=== PATIENT | male | born 1990 | race Asian ===

== ENCOUNTER 2023-04-28 12:49 | Emergency (ER) | payer MEDICAID ==
[~2023-04-28] VITALS: Ht 167.6 cm; Wt 104.5 kg
[2023-04-28 12:55] VITALS: TEMP 98.3
[2023-04-28] MEDS ORDERED: KETOROLAC TROMETHAMINE 60 MG/2 ML VIAL IM ONE (14:15)
[2023-04-28] MEDS ORDERED: METHOCARBAMOL 500 MG TABLET PO ONE (14:15)
[2023-04-28] MEDS ORDERED: ACETAMINOPHEN/CODEINE 300-30 MG TABLET PO ONE (14:15)
[2023-04-28 15:08] LABS: BASOPHILS % (AUTO) 0.9 % (0.0-2.0); EOSINOPHILS % (AUTO) 2.8 % (1.0-6.0); HEMATOCRIT 45.1 % (41-53); HEMOGLOBIN 15.3 g/dL (13.5-17.5); LYMPHOCYTES # (AUTO) 2.6 K/uL (1.0-4.8); LYMPHOCYTES % (AUTO) 31.8 % (22.0-44.0); MEAN CORPUSCULAR HEMOGLOBIN 29.4 pg (26.0-34.0); MEAN CORPUSCULAR HGB CONC 33.9 G/dL (31.0-37.0); MEAN CORPUSCULAR VOLUME 87 fL (80-100); MONOCYTES # (AUTO) 0.6 K/uL (0.1-1.0); NEUTROPHILS # (AUTO) 4.7 K/uL (1.8-7.7); NEUTROPHILS % (AUTO) 57.5 % (40.0-70.0); PLATELET COUNT (AUTO) 380 K/uL (150-450); RED CELL DISTRIBUTION WIDTH 13.6 % (11.5-14.5); WHITE BLOOD COUNT (AUTO) 8.1 K/uL (4.5-11.0)
[2023-04-28] MEDS ORDERED: IBUP-1554 PO (15:08)
[2023-04-28] MEDS ORDERED: ACET-2080 PO (15:08)
[2023-04-28] MEDS ORDERED: METH-812 PO (15:08)
[2023-04-28 15:17] LABS: ANION GAP 9 mmol/L (8-16); CALCIUM, TOTAL 8.9 mg/dL (8.8-10.5); CARBON DIOXIDE 27 mmol/L (22-29); CHLORIDE 104 mmol/L (98-107); CREATININE 1.08 mg/dL (0.60-1.30); GLOMERULAR FILTR. RATE CALC > 60 mL/min (>60); GLUCOSE,RANDOM 102 mg/dL (70-110); POTASSIUM 3.9 mmol/L (3.5-5.1); SODIUM SERUM 140 mmol/L (136-145); UREA NITROGEN, BLOOD 12 mg/dL (7-18)
[2023-04-28 15:30] VITALS: BP 140/80; PULSE 75; RESP 14
[2023-04-28 15:30] LABS: ALANINE AMINOTRANSFERASE 36 U/L (12-78); ALKALINE PHOSPHATASE 101 U/L (46-116); ASPARTATE AMINOTRANSFERASE 23 U/L (15-37); BILIRUBIN,TOTAL 0.3 mg/dL (0.1-1.0); TOTAL PROTEIN, SERUM 8.2 g/dL (6.4-8.2)
== END 2023-04-28 16:01 | disposition home or self-care (01) ==
LOC: EMS 12:58
DX: S39.012A Strain of muscle, fascia and tendon of lower back, initial encounter (principal); F17.210 Nicotine dependence, cigarettes, uncomplicated; F12.90 Cannabis use, unspecified, uncomplicated; X50.3XXA Overexertion from repetitive movements, initial encounter; Y93.89 Activity, other specified; Y92.89 Other specified places as the place of occurrence of the external cause; Y99.0 Civilian activity done for income or pay
CPT/HCPCS: 99284; 80053; 85025; 36415; 72100; 96372; J1885

== ENCOUNTER 2023-11-16 18:04 | Emergency (ER) | payer MEDICAID ==
[~2023-11-16] VITALS: Ht 170.2 cm; Wt 102.3 kg
[~2023-11-16 18:04] MED LIST: ACET-2080 PO; IBUP-1554 PO; METH-812 PO
[2023-11-16 18:19] VITALS: BP 139/90; PULSE 84; RESP 18; TEMP 98.6
[2023-11-16] MEDS: CEPHALEXIN MONOHYDRATE 500 MG CAPSULE PO ONE (20:14)
[2023-11-16] MEDS: KETOROLAC TROMETHAMINE 60 MG/2 ML VIAL IM ONE (20:14)
[2023-11-16] MEDS: HYDROCODONE/ACETAMINOPHEN 5-325 MG TABLET PO ONE (20:14)
[2023-11-16] MEDS ORDERED: HYDR-4062 PO (20:48)
[2023-11-16] MEDS ORDERED: PENI500T2 PO (20:48)
== END 2023-11-16 21:01 | disposition home or self-care (01) ==
LOC: EMS 18:22
DX: K04.7 Periapical abscess without sinus (principal); F12.90 Cannabis use, unspecified, uncomplicated; F17.210 Nicotine dependence, cigarettes, uncomplicated; Z79.899 Other long term (current) drug therapy
CPT/HCPCS: 99283; 96372; J1885

== ENCOUNTER 2023-12-27 21:11 | Emergency (ER) | payer MEDICAID ==
[~2023-12-27] VITALS: Ht 167.6 cm; Wt 97.7 kg
[~2023-12-27 21:11] MED LIST changes: +HYDR-4062 PO; +PENI500T2 PO
[2023-12-27 21:20] VITALS: BP 130/67; PULSE 85; RESP 16; TEMP 98.4
== END 2023-12-28 00:09 | disposition home or self-care (01) ==
LOC: EMS 21:11
DX: L72.0 Epidermal cyst (principal); F17.210 Nicotine dependence, cigarettes, uncomplicated; F12.90 Cannabis use, unspecified, uncomplicated
CPT/HCPCS: 99281; Z7502

== ENCOUNTER 2024-04-14 13:54 | Emergency (ER) | payer MEDICAID ==
[~2024-04-14] VITALS: Ht 167.6 cm; Wt 95.5 kg
[~2024-04-14 13:54] MED LIST changes: -PENI500T2 PO
[2024-04-14 13:58] VITALS: BP 129/72; PULSE 70; RESP 16; TEMP 99.3; O2SAT 98
[2024-04-14 14:37] LABS: BASOPHILS % (AUTO) 0.7 % (0.0-2.0); EOSINOPHILS % (AUTO) 2.4 % (1.0-6.0); HEMATOCRIT 49.4 % (41-53); HEMOGLOBIN 16.4 g/dL (13.5-17.5); LYMPHOCYTES # (AUTO) 2.8 K/uL (1.0-4.8); LYMPHOCYTES % (AUTO) 33.6 % (22.0-44.0); MEAN CORPUSCULAR HGB CONC 33.1 G/dL (31.0-37.0); MEAN CORPUSCULAR VOLUME 88 fL (80-100); MONOCYTES # (AUTO) 0.6 K/uL (0.1-1.0); MONOCYTES % (AUTO) 6.6 % (2.0-9.0); NEUTROPHILS # (AUTO) 4.8 K/uL (1.8-7.7); NEUTROPHILS % (AUTO) 56.7 % (40.0-70.0); PLATELET COUNT (AUTO) 367 K/uL (150-450); RED BLOOD CELL COUNT(AUTO) 5.64 MIL/uL (4.50-5.90); RED CELL DISTRIBUTION WIDTH 14.2 % (11.5-14.5); WHITE BLOOD COUNT (AUTO) 8.4 K/uL (4.5-11.0)
[2024-04-14 14:48] LABS: ANION GAP 8 mmol/L (8-16); CARBON DIOXIDE 29 mmol/L (22-29); CHLORIDE 103 mmol/L (98-107); CREATININE 1.34 mg/dL (0.60-1.30); GLOMERULAR FILTR. RATE CALC > 60 mL/min (>60); GLUCOSE,RANDOM 100 mg/dL (70-110); POTASSIUM 3.3 mmol/L (3.5-5.1); SODIUM SERUM 140 mmol/L (136-145); UREA NITROGEN, BLOOD 8 mg/dL (7-18)
[2024-04-14 15:16] LABS: ALCOHOL, BLOOD (SERUM) < 3 mg/dL (0-10)
[2024-04-14 17:31] LABS: ALCOHOL, URINE DRUG SCREEN NEGATIVE (NEGATIVE); AMPHET/METH SCREEN,URINE NEGATIVE (NEGATIVE); BARBITURATE SCREEN, URINE NEGATIVE (NEGATIVE); BENZODIAZEPINES SCREEN,URINE NEGATIVE (NEGATIVE); CANNABINOID SCREEN,URINE POSITIVE (NEGATIVE); COCAINE SCREEN,URINE POSITIVE (NEGATIVE); METHADONE SCREEN, URINE NEGATIVE (NEGATIVE); OPIATE SCREEN,URINE NEGATIVE (NEGATIVE); PHENCYCLIDINE SCREEN,URINE NEGATIVE (NEGATIVE)
[2024-04-14] MEDS: LORazepam 2 MG TABLET PO ONE (19:54)
== END 2024-04-14 20:28 | disposition home or self-care (01) ==
LOC: EMS 13:56
DX: Z00.8 Encounter for other general examination (principal); F14.129 Cocaine abuse with intoxication, unspecified; F12.90 Cannabis use, unspecified, uncomplicated; F17.210 Nicotine dependence, cigarettes, uncomplicated
CPT/HCPCS: 99283; 80048; 85025; 36415; 80307; G0480

== ENCOUNTER 2024-07-22 09:46 | Emergency (ER) | payer MEDICAID ==
[~2024-07-22] VITALS: Ht 167.6 cm; Wt 95.0 kg
[2024-07-22 10:00] VITALS: TEMP 98.3
[2024-07-22] MEDS ORDERED: ACET-3385 PO (10:35)
[2024-07-22] MEDS ORDERED: IBUP-1492 PO (10:35)
[2024-07-22] MEDS ORDERED: LIDO700A15 TP (10:35)
[2024-07-22] MEDS: LIDOCAINE 5% TRANSDERMAL PATCH TD ONE (10:46)
[2024-07-22] MEDS: KETOROLAC TROMETHAMINE 30 MG/ML VIAL IM ONE (10:46)
[2024-07-22] MEDS: ACETAMINOPHEN 500 MG TABLET PO ONE (10:46)
[2024-07-22 10:52] VITALS: BP 122/73; PULSE 65; RESP 16; O2SAT 98
== END 2024-07-22 10:53 | disposition home or self-care (01) ==
LOC: EMS 09:47
DX: M54.12 Radiculopathy, cervical region (principal); F12.90 Cannabis use, unspecified, uncomplicated; F17.210 Nicotine dependence, cigarettes, uncomplicated
CPT/HCPCS: 99283; 96372; J1885

== ENCOUNTER 2025-03-28 00:59 | Emergency (ER) | payer MEDICAID ==
[~2025-03-28] VITALS: Ht 167.6 cm; Wt 95.5 kg
[~2025-03-28 00:59] MED LIST changes: -ACET-2080 PO; +ACET-3385 PO; -HYDR-4062 PO; +IBUP-1492 PO; -IBUP-1554 PO; +LIDO-57 TP; -METH-812 PO
[2025-03-28 01:04] VITALS: BP 135/51; PULSE 62; RESP 14; TEMP 97.9; O2SAT 99
[2025-03-28] MEDS ORDERED: AMOX250C4 PO (03:56)
[2025-03-28] MEDS: KETOROLAC TROMETHAMINE 30 MG/ML VIAL IM ONE (04:21)
== END 2025-03-28 04:23 | disposition home or self-care (01) ==
LOC: EMS 03:12
DX: K08.89 Other specified disorders of teeth and supporting structures (principal); F12.90 Cannabis use, unspecified, uncomplicated; F17.200 Nicotine dependence, unspecified, uncomplicated
CPT/HCPCS: 99283; 96372; J1885